=== PATIENT | female | born 1985 | race African-American/Black ===

== ENCOUNTER 2017-02-27 11:28 | Emergency (ER) | payer OTHER ==
[2017-02-27] MEDS ORDERED: FLUORESCEIN NA 1 EA STRIP OD ONE (11:41)
[2017-02-27] MEDS ORDERED: TETRACAINE 0.5% HCL 0.6ML DROPPER.BOTTLE OS ONE (11:42)
--- NOTE | 2017-02-27 11:43 | PDOC ---
History of Present Illness - General Chief Complaint: Eye Problem Stated Complaint: left eye pain Time Seen by Provider: 02/27/17 11:39 - History of Present Illness Initial Comments: 02/27/17 13:58 Chief complaint: Irritation of the left eye History of present illness: Patient states that she rubbed her eye this morning to remove an eyelash. Since then has been irritation and tearing. No change in vision. No deep pain. Review of systems: As noted above. Otherwise noncontributory Rest medical history: Healthy female, no ophthalmologic or other significant medical illnesses. No medications Family/social history reviewed and noncontributory Physical exam: Alert oriented well-developed well-nourished no acute distress cheerful and cooperative Afebrile vital signs normal Left eye: There is a small amount of tearing. There is no swelling of the eyelids or the orbital rim. Conjunctiva is clear. Pupil is round and reactive. Fundus is benign. There is staining over the lateral cornea and conjunctiva Impression: Minor corneal abrasion Plan: I was patched after the instillation of erythromycin antibiotic ointment. Instructions to leave patch in place overnight, and rechecked by service line layer in the morning. Patient fully ambulatory and in no significant discomfort upon discharge to follow-up as recommended Past History - Past Medical History Allergies/Adverse Reactions: Allergies Allergy/AdvReac Type Severity Reaction Status Date / Time No Known Allergies Allergy Verified 02/27/17 11:39 Home Medications: Ambulatory Orders NK [No Known Home Medication] 02/27/17 *DC/Admit/Observation/Transfer Diagnosis at time of Disposition: Corneal abrasion Qualifiers: Encounter type: initial encounter Laterality: left Qualified Code(s): S05.02XA - Injury of conjunctiva and corneal abrasion without foreign body, left eye, initial encounter - Discharge Dispostion Disposition: HOME Condition at time of disposition: Improved Admit: No - Referrals Referrals: Mamadou Troy MD [Staff Physician] - 24 hours - Patient Instructions Printed Discharge Instructions: Corneal Abrasion Additional Instructions: Keep the eye patched overnight, remove in the morning. If there is any residual redness irritation or discharge from the eye, see service line layer immediately for further evaluation and treatment as directed. - Post Discharge Activity Forms/Work/School Notes: Back to Work
[2017-02-27 11:44] VITALS: BP 139/91; PULSE 78; TEMP 98.4; BMI 28.6
[2017-02-27] MEDS ORDERED: FLUORESCEIN NA 1 EA STRIP ONE (11:47)
[2017-02-27] MEDS ORDERED: TETRACAINE 0.5% OPHTH SOLN 2 ML BOTTLE ONE (11:47)
[2017-02-27] MEDS ORDERED: GENTAMICIN 0.3% OPHTHALMIC OINTMENT 3.5 GM/TUBE OS SCH (12:15)
[2017-02-27] MEDS ORDERED: ERYTHROMYCIN 0.5% OPHTHALMIC OINTMENT 3.5 GM TUBE ONE (12:15)
== END 2017-02-27 12:30 | disposition home or self-care (01) ==
LOC: FER 11:28
DX: S05.02XA Injury of conjunctiva and corneal abrasion without foreign body, left eye, initial encounter (principal); X58.XXXA Exposure to other specified factors, initial encounter; Y93.89 Activity, other specified; Y92.9 Unspecified place or not applicable
CPT/HCPCS: 99281-25